=== PATIENT | female | born 1975 ===

== ENCOUNTER 2022-09-08 11:13 | Outpatient (CLI) | payer OTHER, SELFPAY ==
--- NOTE | ~2022-09-08 | XR_ITS ---
Clinical Indication: Shortness of breath, prior covid infection PA and lateral views of the chest: Comparison: None Findings: The lungs are clear, without evidence of focal consolidation or pleural effusion. Cardiome diastinal silhouette is within normal limits. Bones and soft tissues are unremarkable. Impression: Normal chest. Reviewed, dictated and finalized at [facility]. AIR DIRECTOR Impression: Normal chest.
== END 2022-09-08 11:14 | disposition home or self-care (01) ==
PROVIDERS: PCP Family Medicine; Visit Provider Nurse Practitioner
DX: R06.02 Shortness of breath (principal)
CPT/HCPCS: 71046

== ENCOUNTER 2022-09-09 10:28 | Emergency (ER) | payer OTHER, SELFPAY ==
[2022-09-09 10:35] VITALS: O2SAT 93
--- NOTE | 2022-09-09 10:45 | ED.URI ---
HPI - URI/Sore Throat General Chief Complaint: Upper Respiratory Infection Stated Complaint: SOB, coughing, sore throat, fever Time Seen by Provider: 09/09/22 10:44 Source: patient and RN notes reviewed Mode of arrival: ambulatory Limitations: no limitations History of Present Illness HPI Narrative: patient had seen her primary care physician and had a chest x-ray yesterday which showed no evidence of pneumonia. She continues to have cough but has not been tested for COVID flu or RSV. MD elicited complaint: fever, cough and sore throat Onset (ago): day(s) (5) Consistency: constant Severity: moderate Description of mucous: clear Able to tolerate fluids by mouth: Yes Exacerbating factors: other (coughing) Relieving factors: nothing Context: sick contacts Associated symptoms: shortness of breath (with coughing) Treatments prior to arrival: none Related Data Home Medications Medication Instructions Recorded Confirmed amlodipine 5 mg tablet 5 mg PO DAILY 09/09/22 09/09/22 brexpiprazole 3 mg tablet (Rexulti) 3 mg PO DAILY 09/09/22 09/09/22 buprenorphine 8 mg-naloxone 2 mg 1 film buccal DAILY 09/09/22 09/09/22 sublingual film duloxetine 40 mg capsule,delayed 40 mg PO DAILY 09/09/22 09/09/22 release Allergies Allergy/AdvReac Type Severity Reaction Status Date / Time acetaminophen [Percocet] Allergy Intermediate Verified 08/21/17 09:49 duloxetine [Cymbalta] Allergy Intermediate sweating Verified 08/21/17 09:50 oxycodone [Percocet] Allergy Intermediate Verified 08/21/17 09:49 No Known Allergies Allergy Unknown Verified 03/26/03 16:46 PMFSH Past Medical History Medical History (Updated 09/09/22 @ 12:58 by Aryan Donato MD) Attention deficit disorder without hyperactivity (02/22/18) Benign essential HTN (12/08/17) Morbid obesity Social History Social History (Updated 09/09/22 @ 12:59 by Aryan Donato MD) Smoking packs per day: 0.5 Smoking cigarettes per day: 10.0 Smoking status: Current every day smoker Tobacco type: cigarettes Exam Const: General: healthy appearing, no acute distress and alert Nutritional Appearance: well nourished and obese morbidly obese Orientation/consciousness: patient oriented x3 Limitations: no limitations HENMT: Head: normal to inspection Ears: external ears normal Face and sinus: normal facial exam Throat: posterior oropharynx normal and uvula midline Eyes: Conjunctivae: conjunctivae normal Pupils: Equal, round and reactive pupils present EOM: EOMs intact bilaterally Neck: Neck: normal visual inspection Resp: Effort & Inspection: normal respiratory effort Auscultation: rhonchi throughout and wheezes scattered wheezes (mild) Cardio: Rate: regular rate Rhythm: regular rhythm GI: GI Palp: Yes Soft to palpation and No Tenderness to palpation present (GI) Auscultation: normal bowel sounds Back/Spine/Pelvis: Cervical Spine: cervical ROM normal Thoracic/Lumbar Spine: thoraco-lumbar ROM normal Skin: General skin exam: normal color Rashes: no rashes Neuro: General: patient oriented x3, moves all extremities, no focal motor deficits and CN's II-XI intact bilaterally Speech: normal speech Gait exam (Neuro): Normal gait present Extrem: General: normal to inspection and no clubbing, cyanosis or edema Psych: Mental Status: mental status grossly normal Affect: normal affect Attitude: cooperative Course Course Emergency Course: Patient given a DuoNeb breathing treatment and she says that she feels a little bit better. I reexamined her lungs she still has some scattered rhonchi. Chest x-ray from yesterday is negative. Vital Signs Vital signs: Vital Signs Pulse Oximetry 93 09/09/22 10:35 Oxygen Delivery Room Air 09/09/22 10:35 Temperature 36.9 C 09/09/22 12:22 Pulse Rate 100 09/09/22 12:22 Respiratory Rate 20 09/09/22 12:22 Blood Pressure 126/86 09/09/22 12:22 Pulse Oximetry 98 09/09/22 12:22 Oxygen Delivery Room Air 08/19
[2022-09-09 10:46] VITALS: BP 149/98; PULSE 117; RESP 18; TEMP 36.9; O2SAT 94
[2022-09-09 11:20] LABS: Influenza A QL RT-PCR Negative (Negative); Influenza B QL RT-PCR Negative (Negative); SARS-CoV-2 RNA PCR Negative (Negative)
[2022-09-09 11:29] LABS: RSV RNA, RT-PCR Negative (Negative)
[2022-09-09] MEDS: IPRATROPIUM 0.5 MG/ALBUTEROL SULFATE 2.5 MG AMPUL.NEB 3 ML INHALATION (12:04)
[2022-09-09 12:09] VITALS: PULSE 104; RESP 16; O2SAT 92
[2022-09-09 12:11] VITALS: PULSE 96; RESP 16
[2022-09-09 12:22] VITALS: BP 126/86; PULSE 100; RESP 20; TEMP 36.9; O2SAT 98
== END 2022-09-09 12:30 | disposition home or self-care (01) ==
PROVIDERS: Emergency Provider Emergency Medicine; PCP Nurse Practitioner
DX: J40 Bronchitis, not specified as acute or chronic (principal); I10 Essential (primary) hypertension; F17.210 Nicotine dependence, cigarettes, uncomplicated; Z20.822 Contact with and (suspected) exposure to COVID-19
CPT/HCPCS: 87634; 87636; 94640; 99283